=== PATIENT | male | born 1975 | race Two or more races ===

== ENCOUNTER 2021-08-21 07:58 | Emergency (ER) | payer MEDICAID ==
[~2021-08-21] VITALS: Ht 170.2 cm; Wt 91.0 kg
[2021-08-21] MEDS ORDERED: ONDANSETRON HCL 4MG/2ML INJ IV STA ×2 (08:09→13:08)
[2021-08-21] MEDS ORDERED: SODIUM CHLORIDE 0.9% 1,000 ML IV ONE (08:15)
[2021-08-21 08:59] LABS: BASOPHILS % 0.8 % (0.0-2.0); EOSINOPHILS % 1.9 % (0.0-5.0); HEMATOCRIT. 43.8 % (42.0-52.0); LYMPHOCYTES % 22.8 % (20.0-50.0); MEAN CORPUSCULAR HEMOGLOBIN 32.8 pg (28.0-32.0); MEAN CORPUSCULAR VOLUME 95.7 fL (80.0-94.0); MEAN PLATELET VOLUME 7.3 fl (7.4-10.4); NEUTROPHILS % 70.5 % (40.0-76.0); PLATELET 195 x1000/uL (130-400); RED BLOOD CELL COUNT 4.58 mill/uL (4.7-6.1)
[2021-08-21 09:07] LABS: CHLORIDE 109 mEq/L (98-107)
[2021-08-21 09:10] LABS: ETHANOL BLOOD < 10 mg/dL
[2021-08-21] MEDS ORDERED: ACETAMINOPHEN 325MG TABLET PO ONE (09:45)
[2021-08-21 10:07] LABS: CLARITY URINE CLEAR (CLEAR); COLOR URINE YELLOW (YELLOW); KETONES URINE TRACE (NEGATIVE); LEUKOCYTE ESTERASE URINE NEGATIVE (NEGATIVE); NITRITE URINE NEGATIVE (NEGATIVE); OCCULT BLOOD URINE NEGATIVE (NEGATIVE); PH URINE 6.5 (4.5-8.0); PROTEIN URINE NEGATIVE (NEGATIVE); SPECIFIC GRAVITY URINE 1.013 (1.005-1.030)
[2021-08-21 10:26] LABS: *AMPHETAMINES SCREEN URINE PRESUMTIVE POSITIVE (NEGATIVE)
[2021-08-21 10:27] LABS: *BARBITURATES SCREEN URINE NEGATIVE (NEGATIVE); *BENZODIAZEPINES SCREEN URINE NEGATIVE (NEGATIVE); *COCAINE SCREEN URINE NEGATIVE (NEGATIVE); CANNABINOID URINE SCREEN NEGATIVE (NEGATIVE); METHADONE URINE SCREEN NEGATIVE (NEGATIVE); OPIATES URINE SCREEN NEGATIVE (NEGATIVE); PHENCYCLIDINE URINE SCREEN NEGATIVE (NEGATIVE)
[2021-08-21] MEDS ORDERED: LEVETIRACETAM 1000MG PREMIX 100 ML IV ONE (11:00)
[2021-08-21] MEDS ORDERED: NICARDIPINE 40MG/200ML PREMIX 200 ML IV PRN (11:00)
[2021-08-21] MEDS ORDERED: MANNITOL 12.5G (25%) VIAL 50ML IV ONE (11:15)
[2021-08-21] MEDS ORDERED: LEVETIRACETAM 500MG PREMIX 200 ML IV SCH (11:45)
[2021-08-21 11:57] LABS: INR 1.1; PROTHROMBIN TIME 11.4 sec (9.6-11.0)
[2021-08-21] MEDS ORDERED: MORPHINE SULFATE 4 MG/ML CPJ (NOT FOR IM USE) IV STA (13:08)
[2021-08-21 13:13] VITALS: BP 141/84
[2021-08-21] MEDS ORDERED: IOHEXOL-350 100 ML BOTTLE ONE (13:47)
== END 2021-08-21 13:29 | disposition short-term general hospital (02) ==
LOC: ER 08:10 → EDBD 08:10 → ER 13:29
DX: I60.8 Other nontraumatic subarachnoid hemorrhage (principal); I10 Essential (primary) hypertension; R00.1 Bradycardia, unspecified
CPT/HCPCS: 36415; 70450; 70496; 70498; 80053; 80305; 80320; 81003; 85025; 85610; 86850; 86900; 86901; 93005; 96361; 96365; 96375; 96376; 99291; J1953; J2150; J2270; J2405; J7030; Q9967; G0480